=== PATIENT | male | born 1960 | race Caucasian/White ===

== ENCOUNTER 2023-01-20 07:30 | Inpatient (IN) | payer OTHER ==
[~2023-01-20] VITALS: Ht 182.9 cm; Wt 108.9 kg
[2023-01-20] MEDS ORDERED: GABAPENTIN 300 MG CAPSULE PO ONE (08:45)
[2023-01-20] MEDS ORDERED: oxyCODONE HCL 10 MG TAB.ER.12H PO ONE ×2 (08:45→09:34)
[2023-01-20] MEDS ORDERED: ACETAMINOPHEN 500 MG TABLET PO ONE (08:45)
[2023-01-20] MEDS ORDERED: CEFAZOLIN SOD 2 GM in D5W 50 ML IV ONE (08:45)
[2023-01-20] MEDS ORDERED: SCOPOLAMINE HYDROBROMIDE 1 MG PATCH .72 H (TRANSDERM-SCOP) TD ONE ×2 (08:45→09:34)
[2023-01-20] MEDS ORDERED: CELECOXIB 100 MG CAPSULE PO ONE (08:45)
[2023-01-20] MEDS ORDERED: CELECOXIB 100 MG CAPSULE ONE (09:33)
[2023-01-20] MEDS ORDERED: ACETAMINOPHEN 500 MG TABLET ONE (09:33)
[2023-01-20] MEDS ORDERED: GABAPENTIN 300 MG CAPSULE ONE (09:34)
[2023-01-20] MEDS ORDERED: GLUCOSE (DEXTROSE) ORAL GEL -Adults PO PRN (10:30)
[2023-01-20] MEDS ORDERED: BISACODYL 10 MG/SUPPOSITORY RC PRN (10:30)
[2023-01-20] MEDS ORDERED: DIPHENHYDRAMINE HCL 25 MG CAPSULE PO PRN (10:30)
[2023-01-20] MEDS ORDERED: INSULIN REGULAR, HUMAN 100 UNITS/ML, 3 ML VIAL (humuLIN R) SUBCUT PRN (10:30)
[2023-01-20] MEDS ORDERED: NALOXONE HCL 0.4 MG/ML AMP (NARCAN) IVP PRN ×4 (10:30→12:15)
[2023-01-20] MEDS ORDERED: D5W 1,000 ML IV PRN (10:30)
[2023-01-20] MEDS ORDERED: DEXTROSE 50% JECT 50 ML DISP.SYRIN IVP PRN (10:30)
[2023-01-20] MEDS ORDERED: METOCLOPRAMIDE HCL 10 MG/2 ML VIAL IVP PRN ×2 (10:30→12:15)
[2023-01-20] MEDS ORDERED: LACTULOSE 20 GM/30 ML UDC PO PRN (10:30)
[2023-01-20] MEDS ORDERED: TRANEXAMIC ACID 1,000 MG/10 ML VIAL ONE (11:00)
[2023-01-20] MEDS ORDERED: ePHEDrine sulfate 50 MG/ML VIAL ONE (11:00)
[2023-01-20] MEDS ORDERED: MIDAZOLAM HCL/PF 2 MG/2 ML SYRINGE ONE (11:00)
[2023-01-20] MEDS ORDERED: ROCURONIUM BROMIDE 10 MG/ML (ZEMURON) ONE (11:00)
[2023-01-20] MEDS ORDERED: BUPIVACAINE /PF 0.25% 30 ML VIAL INJ ONE (11:00)
[2023-01-20] MEDS ORDERED: ONDANSETRON HCL 4 MG/2 ML VIAL ONE (11:00)
[2023-01-20] MEDS ORDERED: PROPOFOL 200MG/ 20ML VIAL (DIPRIVAN) IV ONE (11:00)
[2023-01-20] MEDS ORDERED: LIDOCAINE 2%, 20 ML MDV ONE (11:00)
[2023-01-20] MEDS ORDERED: KETOROLAC TROMETHAMINE 30 MG VIAL ONE (11:00)
[2023-01-20] MEDS ORDERED: DESFLURANE 15 MIN GAS INH ONE (11:00)
[2023-01-20] MEDS ORDERED: HYDROmorphone 1 MG/ML INJ. CARTRIDGE IVP PRN ×5 (11:00→12:15)
[2023-01-20] MEDS ORDERED: NS IRRIG SOLN 1000 ML IR ONE (11:00)
[2023-01-20] MEDS ORDERED: LR 1,000 ML IV.SOLN IV ONE (11:00)
[2023-01-20] MEDS ORDERED: oxyCODONE HCL 5 MG TABLET PO PRN ×2 (11:00)
[2023-01-20] MEDS ORDERED: SUGAMMADEX SODIUM 200 MG/2 ML VIAL IV ONE (11:00)
[2023-01-20] MEDS ORDERED: LORATADINE 10 MG TABLET PO PRN (11:00)
[2023-01-20] MEDS ORDERED: MORPHINE SULFATE 10MG/10ML PF AMP ONE (11:00)
[2023-01-20] MEDS ORDERED: VANCOMYCIN HCL 1000 MG/VIAL IV ONE (11:00)
[2023-01-20] MEDS ORDERED: WATER FOR IRRIGATION,STERILE 1,000 ML IRRIG.SOLN IR ONE (11:00)
[2023-01-20] MEDS ORDERED: traMADol HCL HCL 50 MG TABLET (ULTRAM) PO PRN (11:00)
[2023-01-20] MEDS ORDERED: METF-518 PO (11:27)
[2023-01-20] MEDS ORDERED: METO50TA7 PO (11:27)
[2023-01-20] MEDS ORDERED: SIMV-43 PO (11:27)
[2023-01-20] MEDS ORDERED: EMPA25TA PO (11:27)
[2023-01-20] MEDS ORDERED: MULT-1089 PO (11:27)
[2023-01-20] MEDS ORDERED: VIT1TABL67 PO (11:27)
[2023-01-20] MEDS ORDERED: OMEG-158 PO (11:27)
[2023-01-20] MEDS ORDERED: ONDANSETRON HCL 4 MG/2 ML VIAL IVP PRN ×2 (11:45→12:15)
[2023-01-20] MEDS ORDERED: MEPERIDINE HCL/PF 25 MG/ML DISP.SYRIN IVP PRN (12:15)
[2023-01-20] MEDS: NACL 0.9% 1,000 ML IV SCH ×2 (12:15→22:04)
[2023-01-20] MEDS ORDERED: hydrALAZINE HCL 20 MG/ML VIAL IVP PRN (12:15)
[2023-01-20] MEDS ORDERED: LABETALOL 100 MG/ 20ML VIAL IVP PRN (12:15)
[2023-01-20] MEDS ORDERED: DIPHENHYDRAMINE INJ 50 MG/ML VIAL IVP PRN (12:15)
[2023-01-20] MEDS: ACETAMINOPHEN 500 MG TABLET PO SCH ×2 (14:00→22:03)
[2023-01-20] MEDS ORDERED: ALBUMIN HUMAN 5% 250 ML IV ONE ×4 (14:39→15:30)
[2023-01-20 17:53] VITALS: BP_SYST 104; PULSE 68; RESP 18; TEMP 97.9
[2023-01-20 21:00] VITALS: BP_SYST 129; PULSE 84; RESP 20; TEMP 98.2; O2SAT 95
[2023-01-20] MEDS ORDERED: METOPROLOL SUCCINATE 50 MG TAB.SR.24H (TOPROL XL) PO SCH (21:00)
[2023-01-20] MEDS ORDERED: SIMVASTATIN 20 MG TABLET PO SCH (21:00)
[2023-01-20] MEDS: ceFAZolin SODIUM 2 GM in D5W 50 ML IV SCH (22:01)
[2023-01-20] MEDS: SENNOSIDES/DOCUSATE SODIUM 1 TAB TABLET(SENOKOT-S) PO SCH (22:01)
[2023-01-20] MEDS: KETOROLAC TROMETHAMINE 10 MG TABLET (TORADOL) PO SCH (22:02)
[2023-01-21] VITALS: O2SAT 95
[2023-01-21 00:35] VITALS: BP_SYST 132; PULSE 76; RESP 18; TEMP 98.2; O2SAT 96
[2023-01-21] MEDS: ceFAZolin SODIUM 2 GM in D5W 50 ML IV SCH ×2 (03:04→11:31)
[2023-01-21 05:40] LABS: BASOPHILS % (AUTO) 0.2 % (0.0-2.0); HEMOGLOBIN 12.3 g/dL (14.0-18.0); LYMPHOCYTES % (AUTO) 7.7 % (20.5-51.5); MEAN CORPUSCULAR HEMOGLOBIN 27 pg (27-31); MEAN CORPUSCULAR HGB CONC 32 % (32-36); MEAN CORPUSCULAR VOLUME 85 fL (79.0-98.0); MONOCYTES # (AUTO) 1.2 K/uL (0.0-1.0); MONOCYTES % (AUTO) 9.6 % (1.7-9.3); NEUTROPHILS # (AUTO) 10.1 K/uL (1.8-7.7); NEUTROPHILS % (AUTO) 82.5 % (40.0-70.0); PLATELET COUNT (AUTO) 169 K/uL (130-430); RED BLOOD CELL COUNT(AUTO) 4.58 MIL/uL (4.2-6.2); RED CELL DISTRIBUTION WIDTH 13.2 % (9.0-15.0); WHITE BLOOD COUNT (AUTO) 12.3 K/uL (4.8-10.8)
[2023-01-21 05:59] LABS: CALCIUM 8.1 mg/dL (8.4-11.0); CREATININE 0.93 mg/dL (0.55-1.30); POTASSIUM 4.2 mmol/L (3.5-5.1)
[2023-01-21] MEDS: ACETAMINOPHEN 500 MG TABLET PO SCH (06:28)
[2023-01-21] MEDS: KETOROLAC TROMETHAMINE 10 MG TABLET (TORADOL) PO SCH (06:28)
[2023-01-21] MEDS ORDERED: ASA81 PO (07:34)
[2023-01-21] MEDS ORDERED: ASPIRIN 81 MG TAB.CHEW PO SCH (09:00)
[2023-01-21] MEDS: SENNOSIDES/DOCUSATE SODIUM 1 TAB TABLET(SENOKOT-S) PO SCH (09:14)
[2023-01-21] MEDS: NACL 0.9% 1,000 ML IV SCH (09:15)
[2023-01-21 09:30] VITALS: BP_SYST 115; PULSE 73; RESP 18; TEMP 97.3; O2SAT 94
[2023-01-21] MEDS ORDERED: CELECOXIB 200 MG CAPSULE PO SCH (11:00)
[2023-01-21 11:30] VITALS: BP_SYST 113; PULSE 72; RESP 18; TEMP 98; O2SAT 95
[2023-01-21 12:09] VITALS: BP_SYST 138; PULSE 89; RESP 18; TEMP 97.3; O2SAT 95
== END 2023-01-21 13:55 | disposition home health service (06) | DRG 470 ==
LOC: SMU 08:23
PROVIDERS: ADMIT Student in an Organized Health Care Education/Training Program; ATTEND Student in an Organized Health Care Education/Training Program
PROC: 0SRB01Z Replacement of Left Hip Joint with Metal Synthetic Substitute, Open Approach (ICD-10-PCS; principal; 2023-01-20 11:56)
DX: M16.12 Unilateral primary osteoarthritis, left hip (principal)
CPT/HCPCS: 36415; 72170-TC; 76001; 80048; 82962; 85025; 87081; 88304; 88311; 96379; 97112-GP; 97116-GP; 97163-GP; 97530-GP; A4649; C1713; C1776; J0690; J1815; J1885; J2001; J2274; J2405; J2704; J3370; J3465; J3490; J7030; J7060; J7120; P9041